=== PATIENT | female | born 1960 | race Caucasian/White ===

== ENCOUNTER → 2023-07-19 | Outpatient (CLI) | payer SELFPAY ==
--- NOTE | 2023-07-19 16:55 | RAD_ITS ---
INDICATION: DISC DISEASE EXAMINATION/TECHNIQUE: X-RAY - XR Spine Thoracic 3 Views COMPARISON: None. FINDINGS: VERTEBRAE: Mild compression fractures in the lower thoracic spine. Moderate spondylosis. Disc space narrowing in the mid to lower thoracic spine consistent with degenerative disc disease. No erosive changes. SOFT TISSUES: Unremarkable. INCLUDED CHEST AND ABDOMEN: Unremarkable. RAD/Thoracic Spine 3 Views IMPRESSION: 1. Mild compression fractures in the lower thoracic spine of unknown age. 2. Moderate degenerative changes. Electronically Signed: Joao Vargas DO at 2:35 EDT ,
--- NOTE | 2023-07-19 16:55 | RAD_ITS ---
INDICATION: DISC DISEASE EXAMINATION/TECHNIQUE: X-RAY - XR Spine Cervical 4 or 5 Views COMPARISON: None. FINDINGS: VERTEBRAE: No fracture or subluxation. Moderate facet arthrosis. Mild spondylosis. Disc space narrowing at C5-C6 which likely represents degenerative disc disease. Bilateral bony neural foraminal narrowing which is moderate on the right at C5-C6 and moderate to severe on the left at C3-C4. No erosive changes. PREVERTEBRAL SOFT TISSUES: Unremarkable. LUNG APICES: Visualized portions unremarkable. RAD/Cerv Spine 4 or 5 Views IMPRESSION: Degenerative changes as described above. No acute abnormality. Electronically Signed: Joao Vargas DO at 2:33 EDT ,
--- NOTE | 2023-07-19 16:55 | RAD_ITS ---
INDICATION: DISC DISEASE EXAMINATION/TECHNIQUE: X-RAY - XR Spine Lumbar Min 4 Views COMPARISON: None. FINDINGS: VERTEBRAE: No acute fracture or subluxation of the lumbar spine. Compression fractures of T9 and T10 vertebral bodies of unknown age. Moderate to severe facet arthrosis, worse at L4-L5 and L5-S1. Mild disc space narrowing at L4-L5 may represent degenerative disease. No significant spondylosis. Mild anterior spondylolisthesis of L4 and L5 is likely secondary to facet arthrosis. No erosive changes. SOFT TISSUES: Unremarkable. INCLUDED ABDOMEN: Visualized abdomen is unremarkable. RAD/L/S Spine Min 4 Views IMPRESSION: Degenerative changes as described above. No acute abnormality of the lumbar spine. Electronically Signed: Joao Vargas DO at 2:38 EDT ,
== END | disposition home or self-care (01) ==
LOC: RAD 16:47
PROVIDERS: PCP Nurse Practitioner Adult Health; Referring Provider Chiropractor Orthopedic; Visit Provider Chiropractor Orthopedic
DX: M99.03 Segmental and somatic dysfunction of lumbar region (principal); M99.02 Segmental and somatic dysfunction of thoracic region; M99.04 Segmental and somatic dysfunction of sacral region; M99.01 Segmental and somatic dysfunction of cervical region
CPT/HCPCS: 72050; 72072; 72110